=== PATIENT | male | born 1960 | race Caucasian/White ===

== ENCOUNTER 2020-11-07 19:10 | Emergency (ER) | payer SELFPAY ==
--- NOTE | 2020-11-07 19:38 | ERPHSYRPT ---
- History of Present Illness Time Seen by Provider: 11/07/20 19:35 Source: patient, police Exam Limitations: no limitations (Patient is intoxicated but is alert oriented conversant pleasant.) Patient Subjective Stated Complaint: pt states "I drink everyday and was pulled over." Triage Nursing Assessment: pt ambulated into the er; pt is axo x3; ETOH; pt denies pain; pt states he drink alcohol daily; pt has unsteady gait; wheezing throughout in all lobes; active bowel sounds in all quads; strong radial pulses; vital wnl Physician History: He has been cooperative the entire time initial blood alcohol was in the 260 r basil later it was at 320 at 7:00. As far as medical clearance the patient is medically clear he is stable. Timing/Duration: today Severity: moderate Allergies/Adverse Reactions: penicillin G Allergy (Intermediate, Verified 11/07/20 19:14) Rash Home Medications: Citalopram Hydrobromide [Celexa] 0 mg PO DAILY 08/28/14 [History] Esomeprazole Magnesium [Nexium] 20 mg PO BID 08/28/14 [History] Loratadine [Claritin] 10 mg PO DAILY 08/28/14 [History] lisinopriL [Lisinopril] 0 mg PO DAILY 08/28/14 [History] Hx Tetanus, Diphtheria Vaccination/Date Given: Yes (2014) Hx Influenza Vaccination/Date Given: Yes Hx Pneumococcal Vaccination/Date Given: No Travel Risk - International Travel Have you traveled outside of the country in past 3 weeks: No - Coronavirus Screening Are you exhibiting any of the following symptoms?: No Close contact with a COVID-19 positive Pt in past 14-21 Days: No - Vaccine Status Have you recieved a Covid-19 vaccination: Yes Digital Marketing Strategist: Moderna - Vaccination Dates Date of 2cond Vaccination (if applicable): n/a Dates if Unknown: unknown - Review of Systems Constitutional: No Fever, No Chills Eyes: No Symptoms Ears, Nose, & Throat: No Symptoms Respiratory: No Cough, No Dyspnea Cardiac: No Chest Pain, No Edema, No Syncope Abdominal/Gastrointestinal: No Abdominal Pain, No Nausea, No Vomiting, No Diarrhea Genitourinary Symptoms: No Dysuria Musculoskeletal: No Back Pain, No Neck Pain Skin: No Rash Neurological: No Dizziness, No Focal Weakness, No Sensory Changes Psychological: No Symptoms Endocrine: No Symptoms All Other Systems: Reviewed and Negative - Past Medical History Pertinent Past Medical History: Yes Cardiac History: Hypertension Respiratory History: COPD - Past Surgical History Past Surgical History: Yes Respiratory: Tracheostomy Gastrointestinal: Appendectomy Musculoskeletal: Orthopedic Surgery Other Surgical History: TRACH A CHILD - Social History Smoking Status: Current every day smoker How long have you smoked: YRS Exposure to second hand smoke: Yes Drug Use: none Patient Lives Alone: Yes - Nursing Vital Signs Nursing Vital Signs: Initial Vital Signs Temperature 98.0 F 11/07/20 19:15 Pulse Rate 107 H 11/07/20 19:15 Respiratory Rate 20 11/07/20 19:15 Blood Pressure 135/85 11/07/20 19:15 O2 Sat by Pulse Oximetry 97 11/07/20 19:15 Pain Scale Pain Intensity 0 - Physical Exam General Appearance: no apparent distress, alert Eye Exam: PERRL/EOMI, eyes nml inspection Ears, Nose, Throat Exam: normal ENT inspection, TMs normal, pharynx normal, moist mucous membranes Neck Exam: normal inspection, non-tender, supple, full range of motion Respiratory Exam: normal breath sounds, lungs clear, No respiratory distress Cardiovascular Exam: regular rate/rhythm, normal heart sounds, normal peripheral pulses Gastrointestinal/Abdomen Exam: soft, normal bowel sounds, No tenderness, No mass Back Exam: normal inspection, normal range of motion, No CVA tenderness, No vertebral tenderness Extremity Exam: normal inspection, normal range of motion, pelvis stable Neurologic Exam: alert, oriented x 3, cooperative, normal mood/affect, nml cerebellar function, nml station & gait, sensation nml, No motor deficits Skin Exam: normal color, warm, dry, No rash Lymphatic Exam: No adenopathy SpO2: 97 - Course Nursing assessment & vital signs reviewed: Yes - Progress Progress: improved - Departure Departure Disposition: Intermediate/Detention Clinical Impression: Alcohol intoxication, Medical clearance for incarceration Condition: Stable Critical Care Time: No Referrals: DOCTOR,NO FAMILY [Primary Care Provider] -
[2020-11-07 20:10] VITALS: BP 125/85; PULSE 101; O2SAT 99
== END 2020-11-07 20:10 | disposition home or self-care (01) ==
LOC: ED 19:10
DX: F10.929 Alcohol use, unspecified with intoxication, unspecified (principal); Z79.899 Other long term (current) drug therapy
CPT/HCPCS: 99283